=== PATIENT | female | born 1980 | race African-American/Black ===

== ENCOUNTER 2023-10-12 22:41 | Emergency (ER) | payer MEDICAID ==
[~2023-10-12] VITALS: Ht 172.7 cm; Wt 118.0 kg
[2023-10-12 22:50] VITALS: BP 143/86; PULSE 105; RESP 18; TEMP 98.6; O2SAT 98
== END 2023-10-12 23:04 | disposition left against medical advice (07) ==
LOC: ER 22:41
DX: H57.89 Other specified disorders of eye and adnexa (principal); Z53.21 Procedure and treatment not carried out due to patient leaving prior to being seen by health care provider
CPT/HCPCS: 99283